=== PATIENT | male | born 1965 | race Caucasian/White ===

== ENCOUNTER 2020-04-21 22:35 | Inpatient (IN) | payer MEDICARE, MEDICAID ==
[~2020-04-21] VITALS: Ht 172.7 cm; Wt 83.0 kg
[2020-04-21 23:55] LABS: BASOPHILS % (AUTO) 0.7 % (0.0-2.0); EOSINOPHILS % (AUTO) 1.9 % (1.0-6.0); HEMATOCRIT 37.6 % (41-53); HEMOGLOBIN 12.8 g/dL (13.5-17.5); LYMPHOCYTES # (AUTO) 2.6 K/uL (1.0-4.8); LYMPHOCYTES % (AUTO) 17.8 % (22.0-44.0); MEAN CORPUSCULAR HEMOGLOBIN 31.4 pg (26.0-34.0); MEAN CORPUSCULAR VOLUME 93 fL (80-100); MONOCYTES # (AUTO) 1.1 K/uL (0.1-1.0); MONOCYTES % (AUTO) 7.4 % (2.0-9.0); NEUTROPHILS # (AUTO) 10.4 K/uL (1.8-7.7); NEUTROPHILS % (AUTO) 72.2 % (40.0-70.0); PLATELET COUNT (AUTO) 331 K/uL (150-450); RED BLOOD CELL COUNT(AUTO) 4.07 MIL/uL (4.50-5.90); RED CELL DISTRIBUTION WIDTH 14.6 % (11.5-14.5)
[2020-04-21 23:57] LABS: APPEARANCE,URINE CLEAR (CLEAR); GLUCOSE, URINE (UA) NEGATIVE (NEGATIVE); KETONES,URINE NEGATIVE (NEGATIVE); LEUKOCYTE ESTERASE ,URINE NEGATIVE (NEGATIVE); NITRATE,URINE NEGATIVE (NEGATIVE); OCCULT BLOOD,URINE NEGATIVE (NEGATIVE); PROTEIN,URINE NEGATIVE (NEGATIVE)
[2020-04-22 00:01] LABS: BILIRUBIN,URINE PRELIM. POSITIVE (NEGATIVE)
[2020-04-22 00:03] LABS: AMPHET/METH SCREEN,URINE NEGATIVE (NEGATIVE); BARBITURATE SCREEN, URINE NEGATIVE (NEGATIVE); BENZODIAZEPINES SCREEN,URINE NEGATIVE (NEGATIVE); CANNABINOID SCREEN,URINE NEGATIVE (NEGATIVE); COCAINE SCREEN,URINE NEGATIVE (NEGATIVE); METHADONE SCREEN, URINE NEGATIVE (NEGATIVE); OPIATE SCREEN,URINE NEGATIVE (NEGATIVE); PHENCYCLIDINE SCREEN,URINE NEGATIVE (NEGATIVE)
[2020-04-22 00:09] LABS: ANION GAP 8 mmol/L (8-16); CALCIUM, TOTAL 8.8 mg/dL (8.8-10.5); CARBON DIOXIDE 31 mmol/L (22-29); CHLORIDE 106 mmol/L (98-107); GLOMERULAR FILTR. RATE CALC > 60 mL/min (>60); GLUCOSE,RANDOM 107 mg/dL (70-110); POTASSIUM 3.5 mmol/L (3.5-5.1); SODIUM SERUM 145 mmol/L (136-145); UREA NITROGEN, BLOOD 16 mg/dL (7-18)
[2020-04-22 00:17] LABS: BACTERIA,URINE None Seen /HPF (None Seen); RBC,URINE None Seen /HPF (0-2); SQUAMOUS EPITHELIAL CELL,UR None Seen /LPF (None Seen); WBC,URINE 0-2 /HPF (0-5)
[2020-04-22 00:27] LABS: ALANINE AMINOTRANSFERASE 22 U/L (12-78); ALBUMIN 3.4 g/dL (3.4-5.0); ALKALINE PHOSPHATASE 60 U/L (46-116); ASPARTATE AMINOTRANSFERASE 18 U/L (15-37); BILIRUBIN,TOTAL 0.3 mg/dL (0.1-1.0); CHOL/HDL RATIO 3.8 (4.2-7.3); CHOLESTEROL 188 mg/dL (131-200); FREE T4 (FREE THYROXINE) 1.08 ng/dL (0.76-1.46); HDL CHOLESTEROL 50 mg/dL (40-60); LDL CHOL (CALC.) 123 mg/dL (0-130); THYROID STIMULATING HORMONE 4.05 uIU/mL (0.36-3.74); TOTAL PROTEIN, SERUM 6.8 g/dL (6.4-8.2); TRIGLYCERIDES 73 mg/dL (15-150)
[2020-04-22] MEDS ORDERED: HALOPERIDOL 5 MG TABLET PO PRN (03:00)
[2020-04-22] MEDS ORDERED: ZOLPIDEM TARTRATE 10 MG TABLET PO PRN (03:00)
[2020-04-22 03:28] LABS: COVID AG,FIA SOURCE NASOPHARYNGEAL
[2020-04-22] MEDS ORDERED: INFLUENZA VIRUS VACCINE QVS 2020-21 (6MO+)/PF 60 MCG/0.5 ML SYRINGE IM ONE (05:30)
[2020-04-22] MEDS ORDERED: ONDANSETRON HCL 4 MG TABLET PO PRN (07:45)
[2020-04-22] MEDS ORDERED: MAGNESIUM HYDROXIDE SUSPENSION 30 ML UDCUP PO PRN (07:45)
[2020-04-22] MEDS ORDERED: DOCUSATE SODIUM 100 MG CAPSULE PO PRN (07:45)
[2020-04-22] MEDS ORDERED: GuaiFENesin/D-METHORPHAN [SUGAR-FREE] 200-20MG/10 ML SYRUP UDCUP PO PRN (07:45)
[2020-04-22] MEDS ORDERED: ACETAMINOPHEN 325 MG TABLET PO PRN (07:45)
[2020-04-22] MEDS ORDERED: MAG HYDROX/AL HYDROX/SIMETH ES 30 ML SUSPENSION UDCUP PO PRN (07:45)
[2020-04-22] MEDS ORDERED: ALBUTEROL SULFATE HFA 90 MCG/PUFF 8 GM INHALER IH PRN (07:45)
[2020-04-22] MEDS ORDERED: IBUPROFEN 400 MG TABLET PO PRN (07:45)
[2020-04-22] MEDS ORDERED: LOPERAMIDE HCL 2 MG CAPSULE PO PRN (07:45)
[2020-04-22] MEDS ORDERED: CloNIDine HCL 0.1 MG TABLET PO PRN (07:45)
[2020-04-22] MEDS ORDERED: PETROLATUM,WHITE 28 GM JELLY TP PRN (07:45)
[2020-04-22 08:00] VITALS: BP 138/82
[2020-04-22] MEDS: LORazepam 2 MG TABLET PO PRN (14:55)
[2020-04-22 16:09] VITALS: BP 117/63
[2020-04-22] MEDS: OLANZapine 7.5 MG TABLET PO SCH (20:29)
[2020-04-22] MEDS: BACITRACIN 28 GM OINTMENT TP SCH (20:29)
[2020-04-22] MEDS: DIVALPROEX SODIUM 250 MG ER TABLET PO SCH (20:29)
[2020-04-23 08:00] VITALS: BP 135/79
[2020-04-23] MEDS: BACITRACIN 28 GM OINTMENT TP SCH ×2 (10:27→16:18)
[2020-04-23 16:22] VITALS: BP 115/73
[2020-04-23] MEDS: OLANZapine 7.5 MG TABLET PO SCH (20:22)
[2020-04-23] MEDS: DIVALPROEX SODIUM 250 MG ER TABLET PO SCH (20:22)
[2020-04-24 07:02] LABS: BASOPHILS % (AUTO) 0.6 % (0.0-2.0); HEMATOCRIT 38.4 % (41-53); HEMOGLOBIN 12.9 g/dL (13.5-17.5); LYMPHOCYTES % (AUTO) 17.7 % (22.0-44.0); MEAN CORPUSCULAR HEMOGLOBIN 31.1 pg (26.0-34.0); MEAN CORPUSCULAR HGB CONC 33.6 G/dL (31.0-37.0); MEAN CORPUSCULAR VOLUME 93 fL (80-100); MONOCYTES # (AUTO) 0.6 K/uL (0.1-1.0); MONOCYTES % (AUTO) 5.1 % (2.0-9.0); NEUTROPHILS # (AUTO) 8.5 K/uL (1.8-7.7); NEUTROPHILS % (AUTO) 73.6 % (40.0-70.0); PLATELET COUNT (AUTO) 320 K/uL (150-450); RED BLOOD CELL COUNT(AUTO) 4.15 MIL/uL (4.50-5.90); RED CELL DISTRIBUTION WIDTH 14.5 % (11.5-14.5)
[2020-04-24 08:00] VITALS: BP 121/72
[2020-04-24] MEDS: BACITRACIN 28 GM OINTMENT TP SCH ×2 (08:03→16:05)
[2020-04-24] MEDS: NICOTINE 14 MG/24 HOUR PATCH TD PRN (15:49)
[2020-04-24 16:00] VITALS: BP 111/63
[2020-04-24] MEDS: DIVALPROEX SODIUM 250 MG ER TABLET PO SCH (20:33)
[2020-04-24] MEDS: OLANZapine 7.5 MG TABLET PO SCH (20:34)
[2020-04-25 08:00] VITALS: BP 115/58
[2020-04-25] MEDS: BACITRACIN 28 GM OINTMENT TP SCH ×2 (08:16→16:26)
[2020-04-25 16:07] VITALS: BP 127/93
[2020-04-25] MEDS: DIVALPROEX SODIUM 250 MG ER TABLET PO SCH (20:28)
[2020-04-25] MEDS: OLANZapine 7.5 MG TABLET PO SCH (20:28)
[2020-04-26] MEDS: BACITRACIN 28 GM OINTMENT TP SCH ×2 (08:59→16:06)
[2020-04-26 09:31] VITALS: BP 133/60
[2020-04-26] MEDS: NICOTINE 14 MG/24 HOUR PATCH TD PRN (13:17)
[2020-04-26] MEDS: DIVALPROEX SODIUM 250 MG ER TABLET PO SCH (20:23)
[2020-04-26] MEDS: OLANZapine 7.5 MG TABLET PO SCH (20:24)
[2020-04-26] MEDS: LORazepam 2 MG TABLET PO PRN (20:25)
[2020-04-27] MEDS: BACITRACIN 28 GM OINTMENT TP SCH ×2 (09:00→16:25)
[2020-04-27 16:00] VITALS: BP 143/88
[2020-04-27] MEDS: DIVALPROEX SODIUM 250 MG ER TABLET PO SCH (20:26)
[2020-04-27] MEDS: OLANZapine 7.5 MG TABLET PO SCH (20:26)
[2020-04-28 06:32] LABS: BASOPHILS % (AUTO) 0.4 % (0.0-2.0); EOSINOPHILS % (AUTO) 4.5 % (1.0-6.0); HEMATOCRIT 38.7 % (41-53); HEMOGLOBIN 13.1 g/dL (13.5-17.5); LYMPHOCYTES # (AUTO) 2.3 K/uL (1.0-4.8); LYMPHOCYTES % (AUTO) 21.6 % (22.0-44.0); MEAN CORPUSCULAR HEMOGLOBIN 31.5 pg (26.0-34.0); MEAN CORPUSCULAR HGB CONC 33.8 G/dL (31.0-37.0); MEAN CORPUSCULAR VOLUME 93 fL (80-100); MONOCYTES # (AUTO) 0.8 K/uL (0.1-1.0); MONOCYTES % (AUTO) 7.2 % (2.0-9.0); NEUTROPHILS % (AUTO) 66.3 % (40.0-70.0); PLATELET COUNT (AUTO) 281 K/uL (150-450); RED BLOOD CELL COUNT(AUTO) 4.16 MIL/uL (4.50-5.90); RED CELL DISTRIBUTION WIDTH 14.4 % (11.5-14.5)
[2020-04-28] MEDS: BACITRACIN 28 GM OINTMENT TP SCH ×2 (08:26→16:39)
[2020-04-28 16:47] VITALS: BP 126/77
[2020-04-28] MEDS: OLANZapine 7.5 MG TABLET PO SCH (21:10)
[2020-04-28] MEDS: DIVALPROEX SODIUM 250 MG ER TABLET PO SCH (21:10)
[2020-04-29] MEDS: BACITRACIN 28 GM OINTMENT TP SCH ×2 (08:15→16:38)
[2020-04-29 09:21] VITALS: BP 109/76
[2020-04-29 16:08] VITALS: BP 118/68
[2020-04-29] MEDS: OLANZapine 7.5 MG TABLET PO SCH (20:31)
[2020-04-29] MEDS: DIVALPROEX SODIUM 250 MG ER TABLET PO SCH (20:32)
[2020-04-30 07:02] LABS: BASOPHILS % (AUTO) 0.7 % (0.0-2.0); EOSINOPHILS % (AUTO) 4.9 % (1.0-6.0); HEMATOCRIT 38.6 % (41-53); HEMOGLOBIN 13.3 g/dL (13.5-17.5); LYMPHOCYTES # (AUTO) 2.2 K/uL (1.0-4.8); LYMPHOCYTES % (AUTO) 34.2 % (22.0-44.0); MEAN CORPUSCULAR HEMOGLOBIN 31.8 pg (26.0-34.0); MEAN CORPUSCULAR HGB CONC 34.4 G/dL (31.0-37.0); MEAN CORPUSCULAR VOLUME 92 fL (80-100); MONOCYTES # (AUTO) 0.6 K/uL (0.1-1.0); MONOCYTES % (AUTO) 8.7 % (2.0-9.0); NEUTROPHILS # (AUTO) 3.3 K/uL (1.8-7.7); NEUTROPHILS % (AUTO) 51.5 % (40.0-70.0); PLATELET COUNT (AUTO) 272 K/uL (150-450); RED BLOOD CELL COUNT(AUTO) 4.18 MIL/uL (4.50-5.90); RED CELL DISTRIBUTION WIDTH 14.3 % (11.5-14.5)
[2020-04-30 07:37] LABS: ALANINE AMINOTRANSFERASE 14 U/L (12-78); ALKALINE PHOSPHATASE 52 U/L (46-116); ANION GAP 2 mmol/L (8-16); ASPARTATE AMINOTRANSFERASE 11 U/L (15-37); BILIRUBIN,TOTAL 0.2 mg/dL (0.1-1.0); CALCIUM, TOTAL 8.9 mg/dL (8.8-10.5); CARBON DIOXIDE 33 mmol/L (22-29); CHLORIDE 104 mmol/L (98-107); CHOL/HDL RATIO 4.8 (4.2-7.3); CHOLESTEROL 177 mg/dL (131-200); CREATININE 0.71 mg/dL (0.60-1.30); GLOMERULAR FILTR. RATE CALC > 60 mL/min (>60); GLUCOSE,RANDOM 100 mg/dL (70-110); HDL CHOLESTEROL 37 mg/dL (40-60); LDL CHOL (CALC.) 125 mg/dL (0-130); POTASSIUM 4.5 mmol/L (3.5-5.1); SODIUM SERUM 139 mmol/L (136-145); THYROID STIMULATING HORMONE 2.64 uIU/mL (0.36-3.74); TOTAL PROTEIN, SERUM 6.1 g/dL (6.4-8.2); TRIGLYCERIDES 77 mg/dL (15-150); UREA NITROGEN, BLOOD 16 mg/dL (7-18)
[2020-04-30 07:45] LABS: HEMOGLOBIN A1C 5.2 % (3.8-5.6)
[2020-04-30] MEDS: BACITRACIN 28 GM OINTMENT TP SCH ×2 (08:15→16:10)
[2020-04-30 16:12] VITALS: BP 142/81
[2020-04-30] MEDS: DIVALPROEX SODIUM 250 MG ER TABLET PO SCH (20:02)
[2020-04-30] MEDS: OLANZapine 7.5 MG TABLET PO SCH (20:02)
[2020-05-01 08:00] VITALS: BP 96/64
[2020-05-01] MEDS: BACITRACIN 28 GM OINTMENT TP SCH ×2 (11:36→17:05)
[2020-05-01 17:05] VITALS: BP 145/77
[2020-05-01] MEDS: LORazepam 2 MG TABLET PO PRN (19:32)
[2020-05-01] MEDS: DIVALPROEX SODIUM 250 MG ER TABLET PO SCH (20:31)
[2020-05-01] MEDS: OLANZapine 7.5 MG TABLET PO SCH (20:31)
[2020-05-02] MEDS: BACITRACIN 28 GM OINTMENT TP SCH ×2 (08:03→15:44)
[2020-05-02 09:03] VITALS: BP 97/57
[2020-05-02 17:04] VITALS: BP 115/72
[2020-05-02] MEDS: OLANZapine 7.5 MG TABLET PO SCH (20:34)
[2020-05-02] MEDS: DIVALPROEX SODIUM 250 MG ER TABLET PO SCH (20:36)
[2020-05-02 21:21] LABS: BASOPHILS % (AUTO) 0.7 % (0.0-2.0); EOSINOPHILS % (AUTO) 4.7 % (1.0-6.0); HEMATOCRIT 37.7 % (41-53); HEMOGLOBIN 12.6 g/dL (13.5-17.5); LYMPHOCYTES # (AUTO) 2.5 K/uL (1.0-4.8); LYMPHOCYTES % (AUTO) 30.3 % (22.0-44.0); MEAN CORPUSCULAR HEMOGLOBIN 31.2 pg (26.0-34.0); MEAN CORPUSCULAR HGB CONC 33.5 G/dL (31.0-37.0); MEAN CORPUSCULAR VOLUME 93 fL (80-100); MONOCYTES # (AUTO) 0.8 K/uL (0.1-1.0); MONOCYTES % (AUTO) 9.9 % (2.0-9.0); NEUTROPHILS # (AUTO) 4.5 K/uL (1.8-7.7); NEUTROPHILS % (AUTO) 54.4 % (40.0-70.0); PLATELET COUNT (AUTO) 257 K/uL (150-450); RED BLOOD CELL COUNT(AUTO) 4.05 MIL/uL (4.50-5.90); RED CELL DISTRIBUTION WIDTH 13.8 % (11.5-14.5)
[2020-05-03] MEDS: BACITRACIN 28 GM OINTMENT TP SCH ×2 (09:00→17:35)
[2020-05-03] MEDS ORDERED: OLAN7.5T9 PO (10:40)
[2020-05-03] MEDS ORDERED: DIVA-85 PO (10:40)
[2020-05-03 14:28] VITALS: BP 111/57
== END 2020-05-03 20:34 | disposition home or self-care (01) | DRG 885 ==
LOC: EMS 22:35 → 3EC 04-22 02:55
DX: F31.4 Bipolar disorder, current episode depressed, severe, without psychotic features (principal); R45.851 Suicidal ideations; D64.9 Anemia, unspecified; D72.829 Elevated white blood cell count, unspecified; E03.9 Hypothyroidism, unspecified; F94.0 Selective mutism; Z20.828 Contact with and (suspected) exposure to other viral communicable diseases; Z59.0 Homelessness; Z79.899 Other long term (current) drug therapy; Z88.5 Allergy status to narcotic agent; Z88.0 Allergy status to penicillin; Z28.21 Immunization not carried out because of patient refusal
CPT/HCPCS: 51701; 83036; 84439; 84443; 87426; G0480